=== PATIENT | female | born 1930 | race Asian ===

== ENCOUNTER 2019-05-01 17:38 | Inpatient (IN) | payer OTHER ==
[~2019-05-01] VITALS: Ht 152.4 cm; Wt 44.6 kg
--- NOTE | 2019-05-01 17:46 | NUR ---
PT SENT TO LOBBY TO WAIT FOR AVAILABLE BED. NO DISTRESS AND ALERT AND ORIENTEDG
--- NOTE | 2019-05-01 18:45 | NUR ---
PT IN ED FOR LEFT HIP PAIN X4 DAYS. PER PT AND DAUGHTER NO TRAUMA, NO FALL. PT USUALLY AMBULATES WITH CANE BUT NOT IN LAST 4 DAYS. 1 IN DIAMETER ATKA ADAMES NOTED TO LEGS; PER DAUGHTER TO BE ACCUPUNCTURE. ROM INTACT TO R LEG BUT LIMITED TO LT LEG. NO SWELLING NOTED. PT STS 8/10 PAIN. PT RESP E/U, DAUGHTER AT BEDSIDE.
[2019-05-01 18:55] LABS: BASOPHIL % 0.2 % (0-2); PLATELET COUNT 236 x10^3mcL (130-400)
[2019-05-01 18:56] LABS: RED CELL DISTRIBUTION WIDTH 15.1 % (11.5-14.5)
--- NOTE | 2019-05-01 19:07 | NUR ---
REPORT GIVEN TO ALEXANDRO BLAKE TO ASSUME CARE.
[2019-05-01 19:10] LABS: CARBON DIOXIDE 30.5 mmol/L (21-32); CHLORIDE SERUM 106 mmol/L (98-107); CREATININE SERUM 0.7 mg/dL (0.6-1.0); GLUCOSE SERUM 110 mg/dL (74-106); SODIUM SERUM 143 mmol/L (136-145)
[2019-05-01 19:15] LABS: ALBUMIN 3.6 g/dL (3.4-5.0); ALKALINE PHOSPHATASE 77 U/L (46-116); ALT/SGPT 19 U/L (14-59); AST/SGOT 8 U/L (15-37); BILIRUBIN TOTAL 0.33 mg/dL (0.20-1.00); TOTAL PROTEIN, SERUM 7.1 g/dL (6.4-8.2)
--- NOTE | 2019-05-01 19:30 | NUR ---
MD RAHMAN AT BEDSIDE SPEAKING WITH FAMILY ABOUT PLAN OF CARE
--- NOTE | 2019-05-01 19:43 | NUR ---
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 CM AND [address] IV INTACT AND FLOWS WITHOUT COMPLICATIONS. PT MEDICATED PER MD ORDERS. FAMILY AT BEDSIDE. WILL CONTINUE TO MONITOR.
--- NOTE | 2019-05-01 19:58 | NUR ---
REPORT CALLED TO [facility]
--- NOTE | 2019-05-01 20:10 | NUR ---
MADE AWARE BY SANJIV SEVILLA THAT PT MAY BE TRANSFERED OUT FOR ORTHOPEDIC SURGEON AT THIS TIME. AWAITING FURTHER INFORMATION. MD LACEY [facility]SE
--- NOTE | 2019-05-01 20:40 | NUR ---
PT TRANSFERED TO [facility] VIA GURNEY BY DOE EMT ACCOMPANIED BY FAMILY. PT AWAKE AND ALERT IN NAD. PT BREATHING EVEN AND UNLABORED. PT BELONGINGS SENT WITH PT. [facility] TO ASSUME CARE OF PT AT THIS TIME. IV INTACT AND FLUSHES WITH NO COMPLICATIONS. PT AND FAMILY VERBALIZE UNDERSTANDING OF PLAN OF CARE.
--- NOTE | 2019-05-01 20:42 | NUR ---
RECEIVED PT FROM ED VIA LEXIE, CAME IN DUE TO FALL AND LEFT HIP PAIN, DENIES SYNCOPAL EPISODE. AAOX2 (PERSON, PLACE AND BIRTHDATE). ABLE TO FOLLOW COMMANDS. DENIES HEADACHE/DIZZINESS. NO SOB NOTED, O2 SAT=97%, RA. DENIES CHEST PAIN/PRESSURE. DENIES ABDOMINAL DISCOMFORT. VOIDS. C/O 10/10 LEFT HIP PAIN WORSE ON MOVEMENT. SKIN IS DRY AND INTACT. SIDE RAILS UPX2. CALL LIGHT ON REACH. DAUGHTER AT BEDSIDE. PRIMARY NURSE CHAZ AT BEDSIDE FOR CONTINUITY OF CARE
[2019-05-01 20:43] LABS: MAGNESIUM 2.3 mg/dL (1.8-2.4); PHOSPHOROUS 3.6 mg/dL (2.5-4.9)
[2019-05-01 20:51] LABS: T3 TOTAL 0.84 ng/mL
--- NOTE | 2019-05-01 21:00 | NUR ---
NIEVES CATHETER ROMANSH 16 INSERTED BY PRIMARY NURSE CHAZ, NOTED YELLOW URINE OUTPUT. PT TOLERATED WELL.
[2019-05-01 21:02] VITALS: BP 180/101
[2019-05-01 21:06] VITALS: Ht 152.4 cm; Wt 44.6 kg
[2019-05-01 21:09] LABS: FREE T4 1.1 ng/dL (0.76-1.46); FREE THYROXINE INDEX 2.8 ug/dL (1.4-4.5); T4(THYROXINE) 7.7 ug/dL (4.7-13.3)
[2019-05-01 22:09] VITALS: BP 158/88
--- NOTE | 2019-05-02 01:16 | NUR ---
PT ASLEEP AND APPEARS COMFORTABLE, BREATHING EVEN AND UNLABORED ON ROOM AIR WITH NO RESP DISTRESS NOTED, WILL KEEP TO MONITOR.
--- NOTE | 2019-05-02 06:05 | NUR ---
PT ASLEEP AND EASILY AROUSABLE, BREATHING EVEN AND UNLABORED ON ROOM AIR WITH NO RESP DISTRESS NOTED, MEDICATED ONE TIME NORCO FOR LEFT HIP PAIN WITH GOOD RELIEF, NPO, NIEVES VAI GRAVITY DRAINING YELLOW URINE, NO DISTRESS NOTED, WILL KEEP TO MONITOR.
[2019-05-02 06:31] VITALS: BP 153/82
[2019-05-02 06:32] LABS: BASOPHIL % 0.4 % (0-2); PLATELET COUNT 218 x10^3mcL (130-400)
[2019-05-02 06:37] LABS: RED CELL DISTRIBUTION WIDTH 15.2 % (11.5-14.5)
[2019-05-02 06:59] LABS: CARBON DIOXIDE 27.4 mmol/L (21-32); CHLORIDE SERUM 107 mmol/L (98-107); CREATININE SERUM 0.6 mg/dL (0.6-1.0); GLUCOSE SERUM 84 mg/dL (74-106); MAGNESIUM 2.1 mg/dL (1.8-2.4); PHOSPHOROUS 3.4 mg/dL (2.5-4.9); POTASSIUM SERUM 3.7 mmol/L (3.5-5.1); SODIUM SERUM 143 mmol/L (136-145)
--- NOTE | 2019-05-02 07:28 | NUR ---
BEDSIDE HANDOFF REPORT GIVEN TO DAX, ALL QUESTIONS ANSWERED AND CONCERNS ADDRESSED. PT WITH NO DISTRESS NOTED.
--- NOTE | 2019-05-02 07:39 | NUR ---
RECEIVED PATIENT. IN BED, AWAKE, AAOX4. SPEAKS SOME MONGOLIAN. PATIENT HAS PAIN TO LEFT HIP, REASSURED PATIENT THAT PAIN MED WILL BE GIVEN SHORTLY. REMAINS ON ROOM AIR. NO ACUTE RESP DISTRESS NOTED. SAFETY PRECAUTION IN PLACE. CALL LIGHT WITHIN REACH. WILL CONTINUE TO MONITOR.
--- NOTE | 2019-05-02 07:47 | NUR ---
PATIENT COMPLAINING OF PAIN 8/10 TO LEFT HIP/FEMUR. NORCO 7.5MG PO GIVEN. TOLERATED WELL. WILL REASSESS PAIN AND CONTINUE TO MONITOR.
--- NOTE | 2019-05-02 09:18 | NUR ---
PATIENT IN BED, STABLE. NO ACUTE RESP DISTRESS NOTED. REMAINS ON ROOM AIR. TOLERABLE PAIN TO LLE. REPOSITIONED FOR COMFORT. NIEVES CATHETER IN PLACE, DRAINING WITHOUT DIFFICULTY. EDUCATED PATIENT ABOUT PURPOSE OF NIEVES CATHETER. PATIENT VERBALIZED UNDERSTANDING. EDUCATED ABOUT SAFETY PRECAUTIONS. CALL LIGHT WITHIN REACH. WILL CONTINUE TO MONITOR.
[2019-05-02 09:34] VITALS: BP 136/77
--- NOTE | 2019-05-02 09:36 | NUR ---
PATIENT IN SEVERE PAIN TO LLE, AGGRAVATED BY MOVING AND REPOSITIONING HERSELF INDEPENDENTLY. EDUCATED PT ABOUT SAFETY PRECAUTIONS AND REORIENTED PATIENT TO USING THE CALL LIGHT WHENEVER NEEDED. PER MD, GIVE MORPHINE 2MG IVP STAT. MORPHINE 2MG IVP GIVEN. TOLERATED WELL. WILL CONTINUE TO MONITOR.
--- NOTE | 2019-05-02 12:10 | NUR ---
PATIENT IN STABLE CONDITION. NO DISTRESS NOTED. SAFETY PRECAUTION IN PLACE. CALL LIGHT WITHIN REACH. ECHOCARDIOGRAM IS CURRENTLY BEING DONE. WILL CONTINEU TO MONITOR.
--- NOTE | 2019-05-02 12:13 | NUR ---
ECHOCARDIOGRAM COMPLTED.
[2019-05-02 12:52] VITALS: BP 140/74
--- NOTE | 2019-05-02 15:30 | NUR ---
PATIENT IN BED, STABLE. NO ACUTE RESP DISTRESS NOTED. REMAINS ON ROOM AIR. TOLERABLE PAIN TO LLE. REPOSITIONED FOR COMFORT. NIEVES CATHETER IN PLACE, DRAINING WITHOUT DIFFICULTY. SAFETY PRECAUTION IN PLACE. CALL LIGHT WITHIN REACH. WILL CONTINUE TO MONITOR.
--- NOTE | 2019-05-02 17:15 | NUR ---
PATIENT COMPLAINTS OF SEVERE PAIN TO LLE. MORPHINE 2MG IVP GIVEN PRESCRIBED. TOLERATED WELL. WILL CONTINUE TO MONITOR.
--- NOTE | 2019-05-02 18:00 | NUR ---
PATIENT IN BED, STABLE. NO ACUTE RESP DISTRESS NOTED. REMAINS ON ROOM AIR. PT STATES THAT PAIN MED WAS EFFECTIVE. PT STATES TOLERABLE PAIN TO LLE. NIEVES CATHETER IN PLACE, DRAINING WITHOUT DIFFICULTY. SAFETY PRECAUTION IN PLACE. CALL LIGHT WITHIN REACH. WILL CONTINUE TO MONITOR. FAMILY AT BEDSIDE.
--- NOTE | 2019-05-02 19:15 | NUR ---
PATIENT STABLE, ENDORSED CARE TO END WORKER NURSE.
--- NOTE | 2019-05-02 19:25 | NUR ---
RECIEVED PT RESTING IN BED WITH NO ACUTE DISTRESS NOTED AT THIS TIME AND FAMILY MEMBER AT BEDSIDE, ASSESSMENT PERFORMED, PT IS A/OX2 TO PERSON AND PLACE, PT DENIES PAIN OR SOB AT THIS TIME, IV TO THE RAC, SALINE LOCKED, NIEVES IN PLACE DRAINING CLEAR YELLOW URINE. ALL PT NEEDS ATTENDED TO, SAFETY PRECAUTIONS IN PLACE, WILL CONTINUE TO MONITOR.
[2019-05-02 21:01] VITALS: BP 151/84
--- NOTE | 2019-05-03 00:25 | NUR ---
PT RESTING IN BED WITH NO DISTRESS AT THIS TIME, PT IN COMFORTABLE POSITION, NO PAIN OR SOB AT THIS TIME, RESPIRATIONS EVEN AND UNLABORED. SAFETY PRECAUTIONS IN PLACE. WILL CONTINUE TO MONITOR
--- NOTE | 2019-05-03 02:46 | NUR ---
PT BECAME VERY AGITATED, TRYING TO GET OUT OF BED, PULLING ON LINES AND PULLED OUT NIEVES, PT HAS BEEN RESTRAINED WITH BILATERAL SOFT WRIST RESTRAINTS, ORDER OBTAINED BY DR TEJADA. TWO FINGER WIDTHS OF ROOM IN RESTRAINTS, ALL ALTERNATIVES TO RESTRAINTS ATTEMPTED PRIOR TO INITIATION, WILL CONTINUE TO MONITOR
[2019-05-03 05:45] VITALS: BP 190/113
[2019-05-03 06:18] LABS: PLATELET COUNT 243 x10^3mcL (130-400); RED CELL DISTRIBUTION WIDTH 14.5 % (11.5-14.5)
--- NOTE | 2019-05-03 06:20 | NUR ---
PT RESTED COMFORTABLY THROUGH THE FIRST PART OF THE NIGHT, PT BECAME AGITATED AND CONFUSED AT 0230, WE TRIED TO REORIENTE HER AND USE ALTERNATIVE MEANS OF CALMING HER DOWN BUT SHE PULLED OUT HER NIEVES AND WAS ATTEMPTING TO ASSAULT NURSING STAFF AND WAS THEN RESTRAINED, PT WAS AGITATED UNTIL 0600 AND ONE RESTRAINT WAS TAKEN OFF AND PT TOLERATING, PT ROOM WAS MOVED CLOSER TO NURSES STATION, ATTEMPTED TO MAKE CONTACT WITH PT FAMILY BUT SHE DID NOT ANSWER, PT BP WAS ELEVATED THIS MORNING AND PO HYDRALYZINE WAS GIVEN, ALL PT NEEDS ATTENDED TO AT THIS TIME, BED ALARM IN PLACE, SAFETY PRECAUTIONS IN PLACE, WILL CONTINUE TO MONITOR AND ENDORSE CARE
[2019-05-03 06:29] LABS: BASOPHIL % 0 % (0-2)
[2019-05-03 06:30] LABS: CALCIUM 9.4 mg/dL (8.5-10.1); CARBON DIOXIDE 26.2 mmol/L (21-32); CHLORIDE SERUM 100 mmol/L (98-107); CREATININE SERUM 0.8 mg/dL (0.6-1.0); GLUCOSE SERUM 102 mg/dL (74-106); MAGNESIUM 2.2 mg/dL (1.8-2.4); PHOSPHOROUS 3.9 mg/dL (2.5-4.9); POTASSIUM SERUM 3.6 mmol/L (3.5-5.1); SODIUM SERUM 137 mmol/L (136-145)
--- NOTE | 2019-05-03 07:19 | NUR ---
ENDORSED INSERTION OF NEW NIEVES CATH TO DAY NURSE LYNDSEY DO TO COMBATIVE BEHAVIOR WITH PT SO FAMILY MEMBER CAN BE PRESENT TO CALM PT
--- NOTE | 2019-05-03 07:25 | NUR ---
RECEIVED PT. IN BED A/A/O X2. PT. IS CONFUSED AND CONSTANTLY ATTEMPTING TO GET OOB, PULL ON GOWN AND IV SITE. PT. IS APPEARS RESTLESS IN BED. NO SOB, NO N/V NOTED. PT. DENIES ANY PAIN AT THIS TIME. PT. IS FOUND ON SOFT WRIST RESTRAINT TO R HAND. WILL RELEASE SOFT RESTRAINT (TO R HAND) Q 2HRS. FOR 10 MINS. FOR ROM EXCERCISES. IV SITE NOTED TO R AC. SCD TO BLE MAINTAINED. BED IN LOW POS., CALL LIGHT WITHIN REACH. SIDE RAILS UP X3. CARVER AND CHECKERER SPECIALS AT BEDSIDE TO MAINTAIN SAFETY.
--- NOTE | 2019-05-03 08:00 | NUR ---
F/C (FR. 16) REINSERTED (IT WAS REPORTED BY ORDER DISPATCHER CHIEF RN THAT PT. PULLED OUT F/C EARLY THIS AM). PT. TOLERATED PROCEDURE WELL.
--- NOTE | 2019-05-03 09:30 | NUR ---
FAMILY AT BEDSIDE. PT. APPEARS CALMER IN BED. SOFT WRIST RESTRAINT TO R HAND REMOVED AT THIS TIME.
[2019-05-03 10:00] VITALS: BP 182/90
[2019-05-03 12:16] VITALS: BP 141/83
--- NOTE | 2019-05-03 13:35 | NUR ---
CONSENT FOR SURGERY OBTAINED FROM PT.'S DAUGHTER (MRS. BENY RODRIGUEZ).
[2019-05-03 15:05] VITALS: BP 116/55
[2019-05-03 17:31] VITALS: BP 110/73
--- NOTE | 2019-05-03 18:26 | NUR ---
REMAINS IN STABLE CONDITION AT THIS TIME. PT. HAS BEEN OFF SOFT WRIST RESTRAINT SINCE 09:30 AM. WILL CONTINUE TO MONITOR.
--- NOTE | 2019-05-03 19:25 | NUR ---
RECEIVED PT IN BED AWAKE AND ORIENTED TO PERSON ONLY. PT CALM AT THIS TIME WHILE FAMILY IS PRESENT AT BEDSIDE. NO SOB ON ROOM AIR. SHE HAS NO C/O PAIN AT THIS TIME. W/ IVF D51/2 NS AT 50 CC/HR VIA RTAC. CALL LIGHT W/IN REACH.
[2019-05-03 22:18] VITALS: BP 107/76
--- NOTE | 2019-05-04 01:42 | NUR ---
PT MEDICATED W/ MORPHINE SULFATE 2 MG IV FOR HIP PAIN 12/02. PT'S DAUGHTER AT BEDSIDE.
--- NOTE | 2019-05-04 03:03 | NUR ---
PT VERY CONFUSED AND TRYING TO GET OOB BUT APPEARS TO BE IN PAIN. PT REORIENTED REPEATEDLY AND ALSO MEDICATED W/ TORADOL 30 MG IV.
--- NOTE | 2019-05-04 04:44 | NUR ---
CHLORHEXIDINE PRE-OP WASH DONE PER PROTOCOL.
--- NOTE | 2019-05-04 05:07 | NUR ---
PT AWAKE MOST OF THE NIGHT AND REMAINS CONFUSED. PT TRIED TO GET OOB MANY TIMES AND REORIENTED NEEDED. SHE WAS MEDICATED FOR PAIN X2. PT KEPT NPO FOR SX TODAY AT 0730. NIEVES CATH INTACT AND PATENT. NO BM NOTED. IVF D51/2 NS INFUSING WELL AT 50 CC/HR VIA RTAC. ALL NEEDS ATTENDED TO.
[2019-05-04 05:10] VITALS: BP 136/86
--- NOTE | 2019-05-04 06:49 | NUR ---
PT TAKEN DOWN TO OR. DAUGHTER PRESENT.
--- NOTE | 2019-05-04 07:24 | NUR ---
OUT OF ROOM FOR SURGERY.
--- NOTE | 2019-05-04 10:32 | NUR ---
RETURNED FROM OR S/P ORIF TO LEFT HIP. BREATHING FREELY ON RA. SPINAL ANESTHESIA. EYES CLOSED. RESPONDS TO VERBAL BRIEFLY. LIGHT BLOOD STAINING THROUGH DRESSING. ADDUCTOR PILLOW IN PLACE. ON AIR MATTRESS. IV HL'D. RESTARTED D5 1/2 NS 50 CC HOUR. NIEVES WITH ORANGE/BROWNISH URINE. DTR AT BEDSIDE. CALL LIGHT WITHIN REACH.
[2019-05-04 10:49] LABS: BASOPHIL % 0.4 % (0-2); PLATELET COUNT 229 x10^3mcL (130-400); RED CELL DISTRIBUTION WIDTH 14.4 % (11.5-14.5)
[2019-05-04 11:19] LABS: CALCIUM 8.5 mg/dL (8.5-10.1); CARBON DIOXIDE 29.4 mmol/L (21-32); CHLORIDE SERUM 104 mmol/L (98-107); CREATININE SERUM 0.5 mg/dL (0.6-1.0); GLUCOSE SERUM 103 mg/dL (74-106); MAGNESIUM 1.9 mg/dL (1.8-2.4); PHOSPHOROUS 2.9 mg/dL (2.5-4.9); POTASSIUM SERUM 3.3 mmol/L (3.5-5.1); SODIUM SERUM 141 mmol/L (136-145)
--- NOTE | 2019-05-04 11:53 | NUR ---
PLACED PT ON BILAT SOFT WRIST RESTRAINTS.PT TOOK OFF NC PULLED NIEVES TUBING OVER HEAD WAS ATTEMPTING TO GETOUT OF BED AND PULL OUT IV. FAMILY WILL BE NOTIFIED UPON RETURN.
[2019-05-04 12:37] VITALS: BP 136/91
--- NOTE | 2019-05-04 15:55 | NUR ---
LEFT HIP DRESSING SOAKED INTO CHUX REINFORCED WITH ABD PAD. ADMIN MORPHINE 2 MG IV. REPOSITIONED. ALL PTS GRANDSON AT BEDSIDE.
[2019-05-04 17:31] VITALS: BP 146/100
--- NOTE | 2019-05-04 18:44 | NUR ---
REINFORCED DRESING CDI. PT HAS RT HAND RESTRAINT ON WITH FAMILY AT BEDSIDE. PT IS ATTEMPTING TO PULL OUT IV AND NIEVES UNFASTEN ADDUCTOR PILLOW. TRIES TO GET OUT OF BED. D5 1/2 NS INFUSING 50 CC HOUR RT AC. CALL LIGHT WITHIN REACH.
--- NOTE | 2019-05-04 19:10 | NUR ---
PT IS AWAKE AND ALERT TO SELF. CALM AT THIS TIME. BLIND ON R EYE. PULSES ARE PALPABLE. NO EDEMA NOTED. BREATHING IS EVEN AND UNLABORED ON RA. LUNG SOUNDS CTA. NO SIGNS OF RESP. DISTRESS. ABD IS SOFT AND NONDISTENDED. BS ACTIVE. NIEVES INTACT DRAINING TO GRAVITY. WILL PROVIDE NIEVES CARE. LLE WEAKNESS. ADDUCTOR PILLOW IN PLACE. USES WALKER AT HOME. INCISION X1 WITH SUTURES AND DENISSE. DRSG REINFORCED, CDI. DENIES ANY PAIN AT THIS TIME. IV TO RAC DRY AND INTACT. NO ERYTHEMA NOTED. GRANDSON AT BEDSIDE. BED IN LOWEST POSITION. CALL LIGHT WITHIN REACH. WILL CONTINUE TO MONITOR.
[2019-05-04 19:31] VITALS: BP 119/76
--- NOTE | 2019-05-04 21:10 | NUR ---
ROUTINE MEDICATIONS WERE GIVEN AND TOLERATED WELL. NO ACUTE DISTRESS NOTED. HEPARIN WAS HELD PER DR JUVE ARANA. PT ABLE TO STATE NAME, , BUT DOES NOT KNOW WHERE SHE IS. DENIES ANY PAIN AT THIS TIME. ASSISTED PT ONTO BED MORRIS, BUT NO BM. BREATHING IS EVEN AND UNLABORED ON RA. NO SIGNS OF RESP. DISTRESS. RESTRAINT PROTOCOLS IN PLACE. GRANDSON AT BEDSIDE. BED IN LOWEST POSITION. CALL LIGHT WITHIN REACH. WILL CONTINUE TO MONITOR.
--- NOTE | 2019-05-04 21:58 | NUR ---
PT C/O 11/01 SURGICAL SITE PAIN. MEDICATED WITH MORPHINE PER MAR ORDER. WILL REASSESS AND CHECK EFFECTIVENESS.
--- NOTE | 2019-05-04 23:59 | NUR ---
PT IS RESTLESS, ATTEMPTING TO REMOVE RESTRAINTS, IV, AND NIEVES. RESTRAINT PROTOCOLS IN PLACE. BREATHING IS EVEN AND UNLABORED ON RA. NO SIGNS OF RESP. DISTRESS. DENIES ANY PAIN AT THIS TIME. GRANDSON AT BEDSIDE. BED IN LOWEST POSITION. CALL LIGHT WITHIN REACH. WILL CONTINUE TO MONITOR.
--- NOTE | 2019-05-05 01:50 | NUR ---
PT HAS BECOME MORE AGITATED, STILL ATTEMPTING TO REMOVE RESTRAINTS, IV, AND NIEVES, TRYING TO GET UP FROM BED. WILL MAKE DR TEJADA AWARE.
--- NOTE | 2019-05-05 01:55 | NUR ---
ATIVAN PRN PER JUN ORDER ADMINISTERED AT THIS TIME. WILL CONTINUE TO MONITOR.
[2019-05-05 05:04] VITALS: BP 140/82
[2019-05-05 06:25] LABS: BASOPHIL % 0.1 % (0-2); PLATELET COUNT 207 x10^3mcL (130-400)
[2019-05-05 06:47] LABS: CALCIUM 8.4 mg/dL (8.5-10.1); CARBON DIOXIDE 28.1 mmol/L (21-32); CHLORIDE SERUM 98 mmol/L (98-107); CREATININE SERUM 0.8 mg/dL (0.6-1.0); GLUCOSE SERUM 132 mg/dL (74-106); POTASSIUM SERUM 3.3 mmol/L (3.5-5.1); SODIUM SERUM 131 mmol/L (136-145)
--- NOTE | 2019-05-05 08:00 | NUR ---
SLEEPING. VERY LETHARGIC FROM RECEIVING ATIVAN DURING PORTFOLIO ANALYST. PT WAS VERY RESTLESS ATTEMPTING TO PULL OUT LINES, GET OUT OF BED ALL WHILE RESTRAINED. BILAT SOFT RESTRAINTS. TOTAL CARE. BREATHING FREELY ON RA. NO S/S PAIN. REINFORCED DRESSING TO LEFT HIP CDI. WEARING ADDUCTOR PILLOW AND SCD'S. BED IN LOW POSITION. GRANDSON AT BEDSIDE. PALPABLE PULSES, SKIN WARM TO TOUCH.
[2019-05-05 08:04] VITALS: BP 151/72
--- NOTE | 2019-05-05 09:36 | NUR ---
SPOKE WITH FERNANDA PRIOR TO ADMIN HEPARIN. DRESSING WITH DRIED BLOOD FROM YESTERDAY. H/H 9.8 OK TO ADMIN HEPARIN SQ/
[2019-05-05 13:42] VITALS: BP 155/86
[2019-05-05 16:35] VITALS: BP 125/65
--- NOTE | 2019-05-05 17:01 | NUR ---
JAQUELINE WAS HERE TO PERFORM SWALLOW EVAL. UNABLE PT WAS STILL HAVING POOR RESPONSE FROM ATIVAN ADMIN LAST NIGHT. JAQUELINE RECOMENNDED PUREE DIET UNTIL EVAL CAN BE COMPLETED. T.C. TO FERNANDA. SHE SAID DO NOT FEED PT ANYTHING BECAUSE PT IS TOO SLEEPY. SHE WILL EVAL PT IN THE AM.
--- NOTE | 2019-05-05 19:30 | NUR ---
RECEIVED PT FROM AM NURSE, ALEXANDRO AGUILAR. UNABLE TO ASSESS ORIENTATION DUE TO PT BEING DROWSY. PT OPEN EYES TO VERBAL STIMULI. DAUGHTER AT BEDSIDE. MED-SURG, NO S/S OF PAIN NOTED. PALPABLE PULSES TO ALL EXTREMETIES. NO EDEMA NOTED. LUNG SOUNDS CTA. BREATHING EVEN AND UNLABORED ON RA. ABD SOFT AND NONDISTENDED, ACTIVE BS X4 QUAD. NO N/V/D NOTED. NIEVES CATH IN PLACE, DRAINING ROSALEE COLOR URINE TO GRAVITY. BEDFAST AT THIS TIME. ABDUCTOR PILLOW IN PLACE. SX INSICION TO LEFT HIP WITH SMALL AMOUNT OF DRY BLOOD NOTED. IV RFA PATENT AND INTACT. SITE WNL. NO ACUTE DISTRESS NOTED. BED AT LOWEST SETTING. SIDE RAILS X2 UP. CALL LIGHT WITHING REACH. WILL CONT TO MONITOR.
--- NOTE | 2019-05-05 19:54 | NUR ---
REMAINS VERY LETHARGIC. NOTHING TO BE GIVEN BY MOUTH UNTIL PT CAN BE EVALUATED IN AM PER FERNANDA CHANCE. FAMILY REMAINS AT BEDSIDE. DTR DOES NOT WANT RESTRAINTS ON PT WHILE SHE IS AT BEDSIDE. PT ATTEMPTS TO REMOVE NIEVES INTERMITTENTLY. IV INFUSING D5 1/2 NS 50 CC HOUR. ADDUCTOR PILLOW IN PLACE. NO MORE ACTIVE BLEEDING TO SURGICAL SITE LEFT HIP. WEARING SCD'S. VSS. PT IS TOTAL CARE. BASELINE IS VERY CONFUSED.
[2019-05-05 21:03] VITALS: BP 112/56
--- NOTE | 2019-05-05 23:26 | NUR ---
PT GRIMACING, PER GRANDSON PT STATING PAIN 5/10 TO LEFT HIP. MEDICATED WITH PRN TORADOL PER MAR. NO ACUTE DISTRESS NOTED. WILL CONT TO MONITOR.
--- NOTE | 2019-05-06 00:20 | NUR ---
PT SLEEPING COMFORTABLY, OPEN EYES TO VERBAL STIMULI. BREATHING EVEN AND UNLABORED ON RA. NO ACUTE DISTRESS NOTED. ABDUCTOR PILLOW IN PLACE. BED AT LOWEST SETTING. SIDE RAILS X2 UP. CALL LIGHT WITHING REACH. GRANDSON AT BEDISE. WILL CONT TO MONITOR.
--- NOTE | 2019-05-06 05:56 | NUR ---
PT SLEPT ALL NIGHT, CONT TO BE LETHARGIC BUT RESPONDS TO VERBAL STIMULI. BREATHING EVEN AND UNLABORED ON RA. NIEVES CARE RENDERED. NO SIGNIFICANT CHANGES DURING SHIFT. ABDUCTOR PILLOW IN PLACE. ALL NEEDS ASSESSED AND ATTENDED TO. IV TO LFA INFUSING D5 1/2NS AT 50ML/HR. SITE WNL. GRANDSON AT BEDISIDE. BED AT LOWEST SETTING. SIDE RAILS X2 UP. CALL LIGHT WITHING REACH. WILL CONT TO MONITOR AND ENDORSE CARE TO AM NURSE.
[2019-05-06 05:58] VITALS: BP 131/68
[2019-05-06 07:06] LABS: BASOPHIL % 0.3 % (0-2); PLATELET COUNT 197 x10^3mcL (130-400)
--- NOTE | 2019-05-06 07:15 | NUR ---
RECEIVED PATIENT MOANING AND LETHARGIC, EYES CLOSED. GRANDSON REMAIN AT BEDSIDE. NO DISTRESS NOTED. INFORM FAMILY WILL MEDICATE PATIENT. IV TO LFA INTACT AND INFUSING WELL. WRAPPED TO PREVENT FROM PULLING. POC DISCUSS. CALL LIGHT WITHIN REACH.
--- NOTE | 2019-05-06 07:23 | NUR ---
PT C/O 09/01 LEFT HIP PAIN, MEDICATED WITH PRN TORADOL PER JUN. NO ACUTE DISTRESS NOTED. ENDORSED CARE TO ALEXANDRO LICEA.
[2019-05-06 07:35] LABS: CALCIUM 8.2 mg/dL (8.5-10.1); CARBON DIOXIDE 26.8 mmol/L (21-32); CHLORIDE SERUM 105 mmol/L (98-107); CREATININE SERUM 0.6 mg/dL (0.6-1.0); GLUCOSE SERUM 103 mg/dL (74-106); POTASSIUM SERUM 3.3 mmol/L (3.5-5.1); SODIUM SERUM 140 mmol/L (136-145)
[2019-05-06 07:47] LABS: RED CELL DISTRIBUTION WIDTH 14.7 % (11.5-14.5)
--- NOTE | 2019-05-06 08:31 | NUR ---
PATIENT SLEEPING SOUNDLY NO MOANING NOTED, WAS MEDICATED W/ ANGY AT 0723 AM. NO DISTRESS NOTED. GRANDSON REMAIN AT BEDSIDE. CONT TO MONITOR
[2019-05-06 09:04] VITALS: BP 111/55
--- NOTE | 2019-05-06 09:08 | NUR ---
PATIENT RESONSE WITH MUMBLING, DTR AT BEDSIDE. ADMINISTERED HEPARIN SQ TO LT ABDOMEN. HOLD NORVASC DUE TO LETHARGIC, CONT TO MONITOR.
--- NOTE | 2019-05-06 11:42 | NUR ---
PATIENT RESTING IN BED EYES CLOSED, OCCAS MUMBLING. NO FAMILY AT BEDSIDE. CONT TO MONITOR.
[2019-05-06 14:00] VITALS: BP 115/60
--- NOTE | 2019-05-06 16:08 | NUR ---
PATIENT AWAKE/ALERT DTR SPOKE TO PATIENT ASKING IF PATIENT IN PATIENT, PATIENT REPORT NO PAIN AT THIS TIME. REPOSITIONED TO BACK. CALL LIGHT WITHIN REACH.
[2019-05-06 17:31] VITALS: BP 127/63
--- NOTE | 2019-05-06 18:50 | NUR ---
MEDICATE FOR BLADDER PAIN 12/02 WITH TORADOL 30MG IVP, BLADDER IRRIGATION GOT 500ML URINE, PATIENT REPORT NO PAIN AFTER. BLADDER SCAN 0 ML NOTED. FAMILY MEMBERS AT BEDSIDE UPDATE PT'S CONDITION. CONT TO MONITOR.
--- NOTE | 2019-05-06 19:35 | NUR ---
RECEIVED PT FROM AM NURSE, ALEXANDRO LICEA. PT AWAKE LAYING DOWN IN BED. PT AAOX2, CONFUSED BUT ABLE TO FOLLOW SIMPLE COMMANDS AND MAKE NEEDS KNOWN. DAUGHTER AT BEDSIDE. MED-SURG, NO S/S OF PAIN NOTED. PALPABLE PULSES TO ALL EXTREMETIES. NO EDEMA NOTED. LUNG SOUNDS CTA. BREATHING EVEN AND UNLABORED ON RA. ABD SOFT AND NONDISTENDED, ACTIVE BS X4 QUAD. NO N/V/D NOTED. NIEVES CATH IN PLACE, DRAINING ROSALEE COLOR URINE TO GRAVITY. BEDFAST AT THIS TIME. ABDUCTOR PILLOW IN PLACE. SX INSICION TO LEFT HIP WITH SMALL AMOUNT OF DRY BLOOD NOTED. IV LFA PATENT AND INTACT. SITE WNL. NO ACUTE DISTRESS NOTED. BED AT LOWEST SETTING. SIDE RAILS X2 UP. CALL LIGHT WITHING REACH. WILL CONT TO MONITOR.
[2019-05-06 20:23] VITALS: BP 143/73
--- NOTE | 2019-05-06 21:00 | NUR ---
PT PULLED NIEVES CATH OUT. NEW NIEVES INSERTED, PT TOLERATED WELL. FAMILY REQUESTING ATIVAN, BUT DUE TO PT BEING DROWSY, ATIVAN CANNOT BE GIVEN. FAMILY EDUCATED ABOUT MEDICATION AND THE NEED FOR PT TO BE AWAKE IN ORDER TO HAVE SWALLOW EVAL CHARLIE. FAM STATES UNDERSTANDING. FAM WILL STAY AT BEDSIDE TO AVOID PT FROM PULLING AT LINES. NO ACUTE DISTRESS NOTED. WILL CONT TO MONITOR.
--- NOTE | 2019-05-07 00:10 | NUR ---
PT AWAKE, LAYING DOWN IN BED, BREATHING EVEN AND UNLABORED ON RA. NO ACUTE DISTRESS NOTED. DENIES ANY PAIN. SAFETY PRECAUTIONS IN PLACE. CALL LIGHT WITHING REACH. DAUGHTER AT BEDSIDE. WILL CONT TO MONITOR.
--- NOTE | 2019-05-07 03:45 | NUR ---
PT C/O LEFT HIP PAIN 10/02. MEDICATED WITH PRN TORADOL PER JUN. NO ACUTE DISTRESS NOTED. WILL CONT TO MONITOR.
--- NOTE | 2019-05-07 04:18 | NUR ---
K 3.[address] TEJADA, ORDER FOR POTASSIUM IV RECEIVED AND GIVEN PER JUN. PT PULLED OUT NIEVES FOR THE SECOND TIME. REPORTED TO DR TEJADA. PER DR TEJADA WILL NOT REINSERT NIEVES AT THIS TIME. WILL JUST MONITOR FOR PT TO URINATE. WILL CONT TO MONITOR.
[2019-05-07 05:57] VITALS: BP 147/85
--- NOTE | 2019-05-07 06:02 | NUR ---
PT STAYED AWAKE MOST OF THE NIGHT, BREATHING EVEN AND UNLABORED ON RA. PT HAS NOT URINATE SINCE NIEVES REMOVED AT 0330. NO BLADDER DISTETION NOTED. NO C/O OF URGENCY FROM PT. WILL CONT TO MONITOR URINE OUTPUT. PT CONT TO BE CONFUSED AND FAMILY IS AT BESIDE. ALL NEEDS ASSESSED AND ATTENDED TO. ABDUCTOR PILLOW IN PLACE. NO ACUTE DISTRESS NOTED. BED AT LOWEST SETTING. SIDE RAILS X2 UP. CALL LIGHT WITHING REACH. WILL CONT TO MONITOR AND ENDORSE CARE TO AM NURSE.
[2019-05-07 07:00] LABS: BASOPHIL % 0.5 % (0-2); CALCIUM 8.7 mg/dL (8.5-10.1); CARBON DIOXIDE 25.8 mmol/L (21-32); CHLORIDE SERUM 104 mmol/L (98-107); CREATININE SERUM 0.6 mg/dL (0.6-1.0); GLUCOSE SERUM 99 mg/dL (74-106); PLATELET COUNT 284 x10^3mcL (130-400); POTASSIUM SERUM 3.6 mmol/L (3.5-5.1); RED CELL DISTRIBUTION WIDTH 14.3 % (11.5-14.5); SODIUM SERUM 141 mmol/L (136-145)
--- NOTE | 2019-05-07 08:00 | NUR ---
RECEIVED PATIENT ALERT AND VERY ANXIOUS AND CONFUSED. SHE HAS NOT SLEPT ALL NIGHT PER THE FAMILY AT [facility]. SHE HAS BEEN NPO FOR SWALLOW EVEL TODAY. SHE HAS BEEN PULLING THE NIEVES CATH AND FINALLY OPTED TO KEEP REMOVED. PATIENT HAS NOT FIXATED ON THE ABDUCTOR PILLOW. SHE WANTS IT OFF. SHE HAS THE IV INTACT AND HAS BEEN NOW INCONTINENT OF URINE. SHE HAS HAD LAST BM ON 05/01/19. PATIENT HAS INCISION TO THE LEFT HIP AND IS STATUS POST LEFT HIP SURGERY DUE TO FALL. SHE HAS HAD THE SURGERY AT 05/04. PATEINT JS HAD ANCEF POST OPERATIVE AND NOW COMPLETE. SHE HAS HAD TORADOL AT 0345AM. THE FAMILY DOES NOT WANT THE PATIENT TO HAVE ANY FURTHER NARCOTICS DUE TO HER SLEEPINESS. 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 GLAUCOMA AND HAS VITALS AT THIS TIME AT 98.0, 71, 176, 147/85, 96%. PATIENT AHS NOTED GRANULOMA BILATERALY AND SHE HAS WITH CLEAR SOUNDING LUNGS. PATIENT GIVEN HER HEPARIN SUB Q AND THE PATIENT DID NTO TAKE HER MEDICATIONS THIS AM THE DAUGHTER REFUSED THE MEDICATION AND STATES THE PATIEN TWILL NOT TAKE.
[2019-05-07 09:00] VITALS: BP 148/81
--- NOTE | 2019-05-07 12:34 | NUR ---
REMINDED FAMILY PATENT CAN EAT BUT DUE TO HER LETHARGY ON THAT PERTICULAR TIME THE FACILITY PRACTICE SPECIALIST WNATED TO PREVENT ASPIRATION. ENCOURAGE DIET INTAKE WITH ASPIRATION PRECAUTIONS, RE: PATIENT HAS TROUBLE SWALLOWING AT TIMES.
[2019-05-07] MEDS ORDERED: NOR5 PO (12:50)
[2019-05-07] MEDS ORDERED: APR10 PO (12:51)
--- NOTE | 2019-05-07 14:14 | NUR ---
PATIENT OOB AND TOLERATED AMBULATION WITH PT. WAS ABLE TO GIVE THE MORNING MEDICATIONS THE DAUGHTER WAS AGREEABLE TO GIVE AND ENCOURAGED INTAKE OF DIET WELL. PATIENT IS ANIMATED AND SEEMS ORIENTED TO PERSON AND ACTIVIT AND DID WELL WITH PT.
[2019-05-07 16:03] VITALS: BP 148/81
--- NOTE | 2019-05-07 16:17 | NUR ---
PATIENT TO BE TRANSFERED TO [facility]. PATIENT FAMILY AWARE. WILL CALL IN REPORT INDICATED.
--- NOTE | 2019-05-07 16:19 | NUR ---
PHYSICAL THERAPY DAILY NOTES CO-SIGN All documentation done by the Spindle Setter for 05/07/19 has been reviewed. I agree with the documentation. Reviewed/Co-Signed by: Reba Zhu PT Documentation Done by:COLIN NELSON SPT
[2019-05-07 18:13] VITALS: BP 155/96
--- NOTE | 2019-05-07 19:08 | NUR ---
PATIENT IS FOR DISCHARGED TONIGHT. NO BM FOR SEVERAL DAYS ADN ONLY URINATED THIS AM. PATIENT HAS BEEN EATTING AND DRIUNKING THOUGH BUT HAS REFUSED THE BEDPAN. GAVE REPORT TO STAFF AT [facility] AND THEY ARE EXPECTING HER.
== END 2019-05-07 19:45 | DRG 469 ==
LOC: ED 17:38 → MU 19:40
PROVIDERS: Emergency Medicine; Neuromusculoskeletal Medicine, Sports Medicine; ADMIT Family Medicine
PROC: 0SRS0JA Replacement of Left Hip Joint, Femoral Surface with Synthetic Substitute, Uncemented, Open Approach (ICD-10-PCS; principal; 2019-05-04 07:30)
DX: S72.012A Unspecified intracapsular fracture of left femur, initial encounter for closed fracture (principal); E43 Unspecified severe protein-calorie malnutrition; I16.0 Hypertensive urgency; D64.9 Anemia, unspecified; H54.40 Blindness, one eye, unspecified eye; H40.9 Unspecified glaucoma; E78.5 Hyperlipidemia, unspecified; W18.39XA Other fall on same level, initial encounter; Y93.89 Activity, other specified; Y92.018 Other place in single-family (private) house as the place of occurrence of the external cause
CPT/HCPCS: 84439; 97116-GP; 97530-GP; C1776; G0378; J0690; J1644; J1885; J2060; J2250; J2270; J2405; J2704; J3010; J3480; J3490; J7040; J7042; J7120; Q0092